=== PATIENT | female | born 1965 | race African-American/Black ===

== ENCOUNTER 2016-09-29 14:11 | Emergency (ER) | payer OTHER ==
[~2016-09-29] VITALS: Ht 165.1 cm; Wt 79.8 kg
--- NOTE | ~2016-09-29 | EKG ---
[place] [address] [facility] [place] [address] ELECTROCARDIOGRAM REPORT Name: VARGAS COHEN [id number] Admission: 09/29/16 Attend Phys: Discharge: 09/29/16 Date of : 61 Report #: [id number] [facility] RE[facility]: //name[facility] Test Date: 2016-09-29 Test Time: 14:34:10 Pat Name: VARGAS COHEN Department: Room: Gender: F Cruller Maker: Sergio Smith : 1965 Requested By: Saida Valle Order Number: [id number] MD: Allen Wiley Measurements Intervals Ducor Rate: 61 P: 44 MT: 162 QRS: 8 QRSD: 75 T: 28 QT: 429 QTc: 432 Interpretive Statements Sinus rhythm Probable left atrial enlargement Low voltage, precordial leads Abnormal R-wave progression, early transition Electronically Signed On 09-30-2016 16:39:33 CDT by Allen Wiley [email or web address] <ELECTRONICALLY SIGNED> By: Allen Wiley MD 09/30/16 1639 1434 1434 MD SAPPHIRE George
[~2016-09-29 14:11] MED LIST: ALBUTEROL NEB; ALBUTEROL2.5 MG/0.1 INH; ALBUTEROL2.5 MG/3 M INH; ALLEGRA ALLERG180 MG PO; ALLEGRA180 MG PO; AMBIEN 5 MG TABL5 M1 PO; ASPIR 8181 M1 PO; ATENOLOL-CHLOR1 EACH PO; ATORVASTATIN CA40 MG; BACTRIM DS TAB1 EACH PO; BENADRYL25 MG PO; BUSPAR15 MG PO; CALCIUM OYSTER500 MG PO; CARBAMAZEPINE200 M2 PO; CELEXA20 MG PO; CLARITIN10 M2 PO; CLARITIN5 MG; CLONAZEPAM 1 MG1 M1 PO; CLONAZEPAM PO; COLACE100 MG PO; CYCLOBENZAPRINE10 MG; CYCLOBENZAPRINE10 MG PO; CYMBALTA60 MG PO; DEPAKOTE 250MG250 M1 PO; DESYREL50 MG PO; DETROL LA4 MG PO; DIFLUCAN150 MG PO; DILANTIN100 MG PO; ENOXAPARIN40 MG/0.1 SUBQ; ESTRACE0.5 MG PO; ESTRADIOL 1 MG T1 M1 PO; FLAGYL500 MG; FLONASE 0.05%50 MCG INH; GABAPENTIN 100100 MG PO; GLIPIZIDE 5 MG T5 MG PO; GLIPIZIDE ER2.5 MG PO; GLUCOPHAGE500 MG PO; HUMALOG PE100 UNIT/1 SUBQ; HYDROCODON-ACE1 EAC1 PO; HYDROCODON-ACE1 EAC5; HYDROCODONE-AP1 EAC1 PO; HYDROCODONE-AP1 EAC6 PO; HYDROXYZINE HCL50 MG PO; HYDROXYZINE PAM50 MG PO; IBUPROFEN 600600 M1 PO; IBUPROFEN 800800 M1 PO; LANTUS SUBQ; LEVEMIR FL100 UNIT/2 SQ; LEVOTHYROXIN0.025 MG PO; LEVOXYL25 MCG PO; LEXAPRO 10 MG T10 MG PO; LEXAPRO20 MG PO; LISINOPRIL20 MG PO; LOPRESSOR; LOPRESSOR25 PO; LORATIDINE 10 M10 M1 PO; LORTAB 7.5/5001 TA1 PO; LOVASTAT40 PO; MILK OF MA2400 MG/10 PO; MIRTAZAPINE7.5 MG; NORCO 5-325 TA1 EACH PO; NOVOLOG100 UNIT/1 SUBQ; NYSTATIN 1100000 U/M TOP; OXYCODONE HCL15 MG PO; OXYCODONE HCL5 M1 PO; OXYCONTIN20 M1 PO; OYSCO 500+D TA1 EAC1 PO; OYSCO 500+D TA1 EACH PO; OYSTER SHELL+D1 EAC1 PO; PENICILLIN VK500 M1 PO; PERCOCET 5-3251 EACH PO; PHENYTOIN SODI100 M3 PO; PREDNISONE 20 M20 M1 PO; PREMARIN1.25 MG PO; PROTONIX40 M2; PROTONIX40 M2 PO; REMERON 30 MG T30 MG PO; REMERON15 MG PO; REMERON45 MG PO; RIFAMPIN 300 M300 M1 PO; ROBAXIN 750 MG750 M1 PO; ROXICODONE30 M1 PO; TEGRETOL XR200 MG PO; TRAMADOL 50 MG50 MG PO; TYLENOL325 MG PO; VENTOLIN HFA 1818 GM INH; VENTOLIN HFA INH8 GM IH; VENTOLIN HFA INH8 GM INH; VERAPAMIL ER240 MG PO; VESICARE 5 MG TA5 MG PO; XANAX XR2 MG PO; ZOCOR 20 MG TAB20 M1 PO; [UNRECOGNIZED DRUG - OTHER]
[2016-09-29 14:48] LABS: ABSOLUTE NEUTROPHILS 5.7 thou/uL (1.4-8.2); BASOPHILS 1.4 % (0.0-2.0); EOSINOPHILS 2.7 % (0.0-3.0); HEMATOCRIT 41.6 % (37.0-47.0); HEMOGLOBIN 14.1 gm/dL (12.0-15.0); MANUAL DIFF NO; MCH 32.9 pg (26.0-34.0); MCHC 33.9 g/dL (28.0-37.0); MCV 96.9 fL (80.0-100.0); MONOCYTES 4.1 % (1.0-8.0); PLATELET COUNT 287 thou/uL (150-400); POLYS 62.8 % (36.0-66.0); RBC 4.29 mil/uL (4.20-5.00); RDW 13.8 % (10.5-14.5); WBC 9.1 thou/uL (4.0-11.0)
[2016-09-29 14:54] LABS: ANION GAP 10 mmol/L (7-16); BUN 22 mg/dL (7-18); CALCIUM 9.8 mg/dL (8.5-10.1); CHLORIDE 106 mmol/L (98-107); CO2 26 mmol/L (21-32); CREATININE 0.9 mg/dL (0.6-1.0); GLUCOSE 128 mg/dL (74-106); POTASSIUM 3.8 mmol/L (3.5-5.1); SODIUM 142 mmol/L (136-145)
[2016-09-29 15:03] LABS: ALBUMIN 3.8 g/dL (3.4-5.0); ALKALINE PHOSPHATASE 92 U/L (46-116); SGOT 31 U/L (15-37); SGPT 24 U/L (30-65); TOTAL BILIRUBIN 0.4 mg/dL (<0.1-1.0); TOTAL PROTEIN 7.6 g/dL (6.4-8.2); TROPONIN-I < 0.04 ng/mL (<0.04-0.07)
[2016-09-29 16:11] LABS: URINE BILIRUBIN NEGATIVE (Negative); URINE BLOOD NEGATIVE (Negative); URINE COLOR YELLOW; URINE GLUCOSE-RANDOM* NEGATIVE (Negative); URINE KETONES NEGATIVE (Negative); URINE NITRITE NEGATIVE (Negative); URINE PROTEIN (DIPSTICK) NEGATIVE (Negative); URINE SPECIFIC GRAVITY >= 1.030 (1.003-1.035); URINE UROBILINOGEN 0.2 E.U./dl (0.2-1.0)
[2016-09-29] MEDS ORDERED: ANTIVERT25 MG PO (17:30)
== END 2016-09-29 17:30 | disposition home or self-care (01) ==
LOC: ER 14:11
PROVIDERS: Physician Assistant
DX: R42 Dizziness and giddiness (principal); R51 Headache; F43.10 Post-traumatic stress disorder, unspecified; F31.9 Bipolar disorder, unspecified; F41.9 Anxiety disorder, unspecified; E11.9 Type 2 diabetes mellitus without complications; J45.909 Unspecified asthma, uncomplicated; K21.9 Gastro-esophageal reflux disease without esophagitis; F17.210 Nicotine dependence, cigarettes, uncomplicated; F12.10 Cannabis abuse, uncomplicated; Z90.710 Acquired absence of both cervix and uterus; Z98.890 Other specified postprocedural states; Z86.73 Personal history of transient ischemic attack (TIA), and cerebral infarction without residual deficits; Z79.4 Long term (current) use of insulin; Z88.1 Allergy status to other antibiotic agents; Z91.040 Latex allergy status; Z88.8 Allergy status to other drugs, medicaments and biological substances; Z88.5 Allergy status to narcotic agent

== ENCOUNTER 2017-08-15 13:17 | Emergency (ER) | payer OTHER ==
[~2017-08-15] VITALS: Ht 165.1 cm; Wt 73.9 kg
[~2017-08-15 13:17] MED LIST changes: +ANTIVERT25 MG PO
[2017-08-15] MEDS ORDERED: MOBIC15 MG PO (15:23)
== END 2017-08-15 15:31 | disposition home or self-care (01) ==
LOC: ER 13:17
DX: M54.9 Dorsalgia, unspecified (principal); G89.29 Other chronic pain; M54.2 Cervicalgia; R20.0 Anesthesia of skin; E11.9 Type 2 diabetes mellitus without complications; J45.909 Unspecified asthma, uncomplicated; Z90.89 Acquired absence of other organs; Z90.710 Acquired absence of both cervix and uterus; F31.9 Bipolar disorder, unspecified; F41.1 Generalized anxiety disorder; K21.9 Gastro-esophageal reflux disease without esophagitis; Z86.73 Personal history of transient ischemic attack (TIA), and cerebral infarction without residual deficits; F17.210 Nicotine dependence, cigarettes, uncomplicated; Z88.8 Allergy status to other drugs, medicaments and biological substances; Z91.040 Latex allergy status; Z88.6 Allergy status to analgesic agent; Z88.5 Allergy status to narcotic agent; Z91.018 Allergy to other foods

== ENCOUNTER 2017-12-26 10:49 | Emergency (ER) | payer OTHER ==
[~2017-12-26] VITALS: Ht 165.1 cm; Wt 73.5 kg
--- NOTE | ~2017-12-26 | EKG ---
[address] [place] [address] ELECTROCARDIOGRAM REPORT Name: TAMIKAVARGAS Carlton Room #: [facility]#: [id number] Admission: 12/26/17 Attend Phys: Discharge: 12/26/17 Date of : 61 Report #: [id number] THIS REPORT FOR: //name// [facility] ED Test Date: 2017-12-26 Test Time: 12:37:49 Pat Name: VARGAS LUNDBERG Department: Room: Gender: F Propeller Inspector: = : 1965 Requested By: Leroy Carreon Order Number: [id number] MD: Allen Wiley Measurements Intervals Lewis Rate: 53 P: 42 UT: 173 QRS: 8 QRSD: 88 T: 23 QT: 449 QTc: 422 Interpretive Statements Sinus rhythm Probable left atrial enlargement Abnormal R-wave progression, early transition Compared to ECG 09/29/2016 14:34:10 No significant changes Electronically Signed On 12-28-2017 20:17:21 POINTER MACHINE OPERATOR by Allen Wiley [email or web address] <ELECTRONICALLY SIGNED> By: Allen Wiley MD 12/28/172016 D: [id number] Allen Wiley MD /TONNY
[~2017-12-26 10:49] MED LIST changes: +MOBIC15 MG PO
[2017-12-26 12:55] LABS: ABSOLUTE NEUTROPHILS 3.7 thou/uL (1.4-8.2); EOSINOPHILS 2.3 % (0.0-3.0); HEMATOCRIT 43.1 % (37.0-47.0); HEMOGLOBIN 14.6 gm/dL (12.0-15.0); LYMPHOCYTES 36.8 % (24.0-44.0); MCH 32.8 pg (26.0-34.0); MCHC 33.8 g/dL (28.0-37.0); MONOCYTES 3.9 % (1.0-8.0); PLATELET COUNT 254 thou/uL (150-400); RBC 4.44 mil/uL (4.20-5.00); RDW 13.2 % (10.5-14.5); WBC 6.7 thou/uL (4.0-11.0)
[2017-12-26 13:07] LABS: ANION GAP 12 mmol/L (7-16); BUN 12 mg/dL (7-18); CALCIUM 9.4 mg/dL (8.5-10.1); CHLORIDE 102 mmol/L (98-107); CO2 23 mmol/L (21-32); CREATININE 0.7 mg/dL (0.6-1.0); GLUCOSE 107 mg/dL (74-106); SODIUM 137 mmol/L (136-145)
[2017-12-26 13:12] LABS: PROTIME 9.5 Seconds (9.3-11.4)
[2017-12-26 13:16] LABS: ALBUMIN 4.1 g/dL (3.4-5.0); MAGNESIUM 1.9 mg/dL (1.8-2.4); SGOT 21 U/L (15-37); SGPT 18 U/L (30-65); TOTAL BILIRUBIN 0.3 mg/dL (<0.1-1.0); TOTAL PROTEIN 8.1 g/dL (6.4-8.2); TROPONIN-I <0.06 ng/mL (<0.06)
[2017-12-26 14:11] LABS: URINE BILIRUBIN NEGATIVE (Negative); URINE BLOOD NEGATIVE (Negative); URINE CLARITY CLEAR; URINE COLOR YELLOW; URINE GLUCOSE-RANDOM* NEGATIVE (Negative); URINE KETONES NEGATIVE (Negative); URINE LEUKOCYTES-REFLEX NEGATIVE (Negative); URINE NITRITE-REFLEX NEGATIVE (Negative); URINE PROTEIN (DIPSTICK) NEGATIVE (Negative); URINE SPECIFIC GRAVITY >= 1.030 (1.005-1.035); URINE UROBILINOGEN 0.2 E.U./dl (0.2-1.0)
[2017-12-26 14:18] LABS: AMP/METHAMP Negative (Negative); BARBITURATES Negative (Negative); BENZODIAZEPINES Negative (Negative); COCAINE POSITIVE (Negative); METHADONE Negative (Negative); OPIATES Negative (Negative); PCP Negative (Negative)
[2017-12-26] MEDS ORDERED: BUTALB-APAP-CA1 EACH PO (14:54)
[2017-12-26] MEDS ORDERED: PROMS25 WY RECTAL (14:54)
[2017-12-26] MEDS ORDERED: PREDNISONE 20 M20 MG PO (14:56)
[2017-12-26 15:32] VITALS: BP 130/82
== END 2017-12-26 15:32 | disposition home or self-care (01) ==
LOC: ER 10:49
PROVIDERS: Emergency Medicine
DX: R51 Headache (principal); F14.90 Cocaine use, unspecified, uncomplicated; R42 Dizziness and giddiness; R11.0 Nausea; F31.9 Bipolar disorder, unspecified; F41.9 Anxiety disorder, unspecified; E11.9 Type 2 diabetes mellitus without complications; J45.909 Unspecified asthma, uncomplicated; F17.210 Nicotine dependence, cigarettes, uncomplicated; K21.9 Gastro-esophageal reflux disease without esophagitis; Z88.8 Allergy status to other drugs, medicaments and biological substances; Z91.041 Radiographic dye allergy status; Z88.6 Allergy status to analgesic agent; Z88.5 Allergy status to narcotic agent; Z90.89 Acquired absence of other organs; Z90.710 Acquired absence of both cervix and uterus; Z98.890 Other specified postprocedural states; Z86.73 Personal history of transient ischemic attack (TIA), and cerebral infarction without residual deficits